=== PATIENT | female | born 1935 | race Asian ===

== ENCOUNTER 2016-12-01 18:13 | Emergency (ER) | payer OTHER ==
[~2016-12-01] VITALS: Ht 149.9 cm; Wt 54.4 kg
[2016-12-01] MEDS ORDERED: SODIUM CHLORIDE 0.9% 1,000 ML IV ONE (19:06)
[2016-12-01] MEDS ORDERED: ONDANSETRON HCL 4 MG/2 ML VIAL IV ONE (19:15)
[2016-12-01 19:54] LABS: Urine Bilirubin Negative (Negative); Urine Blood Negative /uL (Negative); Urine Ketone Negative (Negative); Urine Nitrite Negative (Negative); Urine RBC 6 /hpf (0 - 4); Urine Squamous Epithelial Cell FEW /hpf (<5); Urine Urobilinogen Normal (Negative)
[2016-12-01 19:55] LABS: Urine Color Straw (Yellow); Urine Glucose 1+ mg/dL (Normal)
[2016-12-01 19:55] LABS: Albumin 3.6 g/dL (3.4-5.0); BUN/Creatinine Ratio 13.7; Calcium 9.3 mg/dL (8.5-10.1); Potassium 4.1 mmol/L (3.5-5.1)
[2016-12-01 19:58] LABS: Bilirubin, Total 0.5 mg/dL (0.2-1.0); Total Protein 7.1 g/dL (6.4-8.2)
[2016-12-01 20:02] LABS: Basophils # (auto) 0 uL; Basophils % (auto) 0.8 % (0.0-2.0); Eosinophils # (auto) 0 uL; Eosinophils % (auto) 0.5 % (0.0-7.0); Hematocrit 35.8 % (36.0-46.0); Hemoglobin 11.3 g/dL (12.2-16.2); Lymphocytes # (auto) 1.4 uL; Lymphocytes % (auto) 25.5 % (10.0-50.0); Mean Corpuscular Hemoglobin 31.4 pg (28.0-32.0); Mean Corpuscular Hgb Conc. 31.5 g/dL (32.0-36.0); Mean Corpuscular Volume 99.6 fL (80.0-100.0); Mean Platelet Volume 7.2 fL (7.4-10.4); Monocytes # (auto) 0.5 uL; Monocytes % (auto) 8.3 % (0.0-12.0); Neutrophils # (auto) 3.6 uL; Neutrophils % (auto) 64.9 % (37.0-80.0); Platelet Count (auto) 311 10^3/uL (140-450); Red Cell Distribution Width 13.6 % (11.6-16.0); White Blood Cell 5.6 10^3/uL (4.4-10.8)
[2016-12-02 00:36] VITALS: BP 143/64
== END 2016-12-02 00:37 | disposition home or self-care (01) ==
LOC: ER 18:19
DX: K29.70 Gastritis, unspecified, without bleeding (principal); E11.9 Type 2 diabetes mellitus without complications; E78.5 Hyperlipidemia, unspecified; I10 Essential (primary) hypertension; Z85.3 Personal history of malignant neoplasm of breast
CPT/HCPCS: 36415; 74176; 80053; 81001; 83690; 85025; 93005; 96360; 99285; J2405; J7030

== ENCOUNTER 2017-09-24 20:16 | Inpatient (IN) | payer OTHER ==
[~2017-09-24] VITALS: Ht 152.4 cm; Wt 57.6 kg
[2017-09-24 21:21] LABS: INR 0.89 (0.9-1.15); Partial Thromboplastin Time 25.3 sec (22.64-33.71); Prothrombin Time 9.7 sec (9.37-12.3)
[2017-09-24 21:22] LABS: Albumin 3.4 g/dL (3.4-5.0); Calcium 10.8 mg/dL (8.5-10.1); Potassium 3.9 mmol/L (3.5-5.1)
[2017-09-24 21:24] LABS: BUN/Creatinine Ratio 18.1
[2017-09-24 21:32] LABS: Bilirubin, Total 0.5 mg/dL (0.2-1.0); Total Protein 6.9 g/dL (6.4-8.2)
[2017-09-24] MEDS ORDERED: DIGOXIN (250MCG/ML) 2 ML AMPULE IV ONE (22:00)
[2017-09-24 22:14] LABS: B-Type Natriuretic Peptide 82.16 pg/mL (0-100)
[2017-09-24 22:22] LABS: Temperature: 21.6 C (20.0-25.0)
[2017-09-24 22:53] LABS: Eosinophils # (auto) 0 uL; Eosinophils % (auto) 0.4 % (0.0-7.0); Hemoglobin 11.9 g/dL (12.2-16.2); Monocytes # (auto) 0.6 uL; Neutrophils # (auto) 3.6 uL; Nucleated Red Blood Cells % 0.1 %
[2017-09-24 22:54] LABS: Basophils # (auto) 0.1 uL; Hematocrit 35.5 % (36.0-46.0); Lymphocytes # (auto) 2.5 uL; Lymphocytes % (auto) 36.4 % (10.0-50.0); Mean Corpuscular Hemoglobin 35.3 pg (28.0-32.0); Mean Corpuscular Hgb Conc. 33.6 g/dL (32.0-36.0); Mean Corpuscular Volume 105.1 fL (80.0-100.0); Mean Platelet Volume 7.1 fL (6.9-10.8); Monocytes % (auto) 8.6 % (0.0-12.0); Neutrophils % (auto) 53.6 % (37.0-80.0); Platelet Count (auto) 224 10^3/uL (140-450); Red Cell Distribution Width 13.2 % (11.8-14.3); White Blood Cell 6.8 10^3/uL (4.4-10.8)
[2017-09-25] MEDS ORDERED: DIGOXIN (250MCG/ML) 2 ML AMPULE IV ONE (00:45)
[2017-09-25] MEDS ORDERED: InsuLIN REG 1unit/0.01ml Soln (100units/ml) IV ONE (01:00)
[2017-09-25] MEDS ORDERED: SODIUM CHLORIDE 0.9% 1,000 ML IV ONE (01:00)
[2017-09-25] MEDS ORDERED: ENOXAPARIN SOD 60 MG/0.6 ML SYRINGE SC ONE (03:15)
[2017-09-25] MEDS ORDERED: NITROGLYCERIN 0.4 MG SL TAB SL PRN (05:00)
[2017-09-25] MEDS ORDERED: ONDANSETRON HCL 4 MG/2 ML VIAL IV PRN (05:45)
[2017-09-25] MEDS ORDERED: HYDROcodone-ACET 5/325MG TAB PO PRN (05:45)
[2017-09-25] MEDS ORDERED: HYDROmorphone HCL 2 MG/ML VL IV PRN (05:45)
[2017-09-25] MEDS ORDERED: ACETAMINOPHEN 500 MG TAB PO PRN (05:45)
[2017-09-25 08:00] LABS: Eosinophils # (auto) 0.1 uL; Hemoglobin 11.9 g/dL (12.2-16.2); Lymphocytes # (auto) 2.6 uL; Monocytes # (auto) 0.5 uL; Neutrophils # (auto) 2.7 uL
[2017-09-25 08:02] LABS: Basophils # (auto) 0 uL; Basophils % (auto) 0.8 % (0.0-2.0); Eosinophils % (auto) 1.5 % (0.0-7.0); Hematocrit 34.8 % (36.0-46.0); Mean Corpuscular Hemoglobin 35.3 pg (28.0-32.0); Mean Corpuscular Hgb Conc. 34.1 g/dL (32.0-36.0); Mean Corpuscular Volume 103.5 fL (80.0-100.0); Monocytes % (auto) 8.4 % (0.0-12.0); Neutrophils % (auto) 45.3 % (37.0-80.0); Nucleated Red Blood Cells % 0.1 %; Platelet Count (auto) 231 10^3/uL (140-450); Red Cell Distribution Width 13.1 % (11.8-14.3); White Blood Cell 5.9 10^3/uL (4.4-10.8)
[2017-09-25 08:22] LABS: BUN/Creatinine Ratio 21.1; Calcium 10.2 mg/dL (8.5-10.1); Potassium 3.6 mmol/L (3.5-5.1)
[2017-09-25 09:00] VITALS: BP 136/75
[2017-09-25 09:30] VITALS: BP 136/75
[2017-09-25] MEDS ORDERED: LOSARTAN POTASSIUM 50 MG TAB PO SCH (10:00)
[2017-09-25] MEDS ORDERED: ASPirin-EC 81 mg tab PO SCH (10:00)
[2017-09-25] MEDS: METOPROLOL TARTRATE 50 MG TAB PO SCH ×2 (10:34→22:03)
[2017-09-25 10:48] LABS: B-Type Natriuretic Peptide 274.48 pg/mL (0-100)
[2017-09-25 10:49] LABS: Temperature: 22.7 C (20.0-25.0)
[2017-09-25] MEDS ORDERED: LOVA10TA2 PO (11:20)
[2017-09-25] MEDS ORDERED: CLOP75TA28 PO (11:20)
[2017-09-25] MEDS ORDERED: CLON0.2D6 PO (11:20)
[2017-09-25] MEDS ORDERED: AML5T PO (11:20)
[2017-09-25] MEDS ORDERED: HYDR-3682 PO (11:20)
[2017-09-25 13:00] VITALS: BP 131/61
[2017-09-25 17:00] VITALS: BP 141/70
[2017-09-25 22:00] VITALS: BP 154/48
[2017-09-25 23:19] VITALS: BP 154/48
== END 2017-09-25 23:46 | disposition short-term general hospital (02) | DRG 281 ==
LOC: ER 20:16 → EDBD 20:16 → TELE 20:17 → TELE-WESTW 09-25 09:16
PROVIDERS: ADMIT Nurse Practitioner Family; ATTEND Family Medicine
DX: I21.4 Non-ST elevation (NSTEMI) myocardial infarction (principal); E87.1 Hypo-osmolality and hyponatremia; E11.65 Type 2 diabetes mellitus with hyperglycemia; I48.0 Paroxysmal atrial fibrillation; I25.10 Atherosclerotic heart disease of native coronary artery without angina pectoris; D64.9 Anemia, unspecified; I10 Essential (primary) hypertension; I70.0 Atherosclerosis of aorta; Z96.659 Presence of unspecified artificial knee joint; Z79.02 Long term (current) use of antithrombotics/antiplatelets; Z86.73 Personal history of transient ischemic attack (TIA), and cerebral infarction without residual deficits
CPT/HCPCS: 36415; 71010; 80048; 80053; 83735; 83880; 84443; 84484; 85025; 85379; 85610; 85730; 93005; 93306; 96361; 96372; 96374; 96375; J1815